=== PATIENT | male | born 1995 | race African-American/Black ===

== ENCOUNTER 2019-03-12 06:50 | Emergency (ER) | payer BC ==
[~2019-03-12] VITALS: Ht 177.8 cm; Wt 95.3 kg
[2019-03-12] MEDS ORDERED: IV NORMAL SALINE 1000ML BAG 1,000 ML IV ONE ×2 (07:15→08:15)
[2019-03-12] MEDS ORDERED: ONDANSETRON PF 4 MG/2 ML VIAL. IV ONE (07:15)
--- NOTE | 2019-03-12 07:16 | PHYS DOC ---
Past Medical History Past Medical History: Seizure, Other Additional Past Medical Histor: NEUROPATHY Past Surgical History: No Surgical History Alcohol Use: Occasionally Drug Use: Marijuana Adult General Chief Complaint Chief Complaint: SEIZURE HPI HPI Patient is a 23 year old F who presents for seizure. He has a history of seizures and takes keppra 500 BID. He works nights. He usually takes his medication at 5:30 PM when he gets up. He did not take it till 6:45. He also did not sleep that well yesterday. 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 He denies head injury, neck pain, cp, sob, fever. PMH: seizures PSH: denies SH: smokes cigs, MJ, drinks occas, no other drugs Review of Systems Review of Systems Constitutional: Denies fever or chills Eyes: Denies change in visual acuity, redness, or eye pain HENT: Denies nasal congestion or sore throat Respiratory: Denies cough or shortness of breath Cardiovascular: No additional information not addressed in HPI GI: Denies abdominal pain, nausea, vomiting, bloody stools or diarrhea : Denies dysuria or hematuria Musculoskeletal: Denies back pain or joint pain Integument: Denies rash or skin lesions Neurologic: Denies headache, focal weakness or sensory changes All other systems were reviewed and found to be within normal limits, except as documented in this note. Current Medications Current Medications Current Medications Medications (Trade) Dose Ordered Sig/Scott Start Time Stop Time Status Last Admin Dose Admin Ondansetron HCl (Zofran) 4 mg 1X ONCE 03/12/19 07:15 03/12/19 07:16 DC 03/12/19 07:21 4 MG Sodium Chloride 1,000 ml @ 1,000 mls/hr 1X ONCE 03/12/19 08:15 03/12/19 09:14 DC 03/12/19 08:06 1,000 MLS/HR Allergies Allergies Allergies Coded Allergies Type Severity Reaction Last Updated Verified No Known Drug Allergies 03/12/19 No Physical Exam Physical Exam Constitutional: Well developed, well nourished, no acute distress, non-toxic appearance. HENT: Normocephalic, atraumatic, bilateral external ears normal, oropharynx moist, no oral exudates, nose normal. Eyes: PERRLA, EOMI, conjunctiva normal, no discharge. Neck: Normal range of motion, no tenderness, supple, no stridor. Cardiovascular:Heart rate regular rhythm, no murmur Lungs & Thorax: Bilateral breath sounds clear to auscultation Abdomen: Bowel sounds normal, soft, no tenderness, no masses, no pulsatile masses. Skin: Warm, dry, no erythema, no rash. Back: No tenderness, no CVA tenderness. Extremities: No tenderness, no cyanosis, no clubbing, ROM intact, no edema. Neurologic: Alert and oriented X 3, normal motor function, normal sensory function, no focal deficits noted. Psychologic: Affect normal, judgement normal, mood normal. Current Patient Data Vital Signs Vital Signs Date Time Temp Pulse Resp B/P (MAP) Pulse Ox O2 Delivery O2 Flow Rate FiO2 03/12/19 09:25 89 16 98 03/12/19 06:50 98.2 159/68 (98) Room Air 98.2 Lab Values Laboratory Tests Test 03/12/19 07:05 03/12/19 07:45 03/12/19 09:03 White Blood Count 16.5 x10^3/uL (4.0-11.0) H Red Blood Count 5.44 x10^6/uL (4.30-5.70) Hemoglobin 17.5 g/dL (13.0-17.5) Hematocrit 51.4 % (39.0-53.0) Mean Corpuscular Volume 95 fL (79-100) Mean Corpuscular Hemoglobin 32 pg (25-35) Mean Corpuscular Hemoglobin Concent 34 g/dL (31-37) Red Cell Distribution Width 13.4 % (11.5-14.5) Platelet Count 336 x10^3/uL (140-400) Neutrophils (%) (Auto) 71 % (31-73) Lymphocytes (%) (Auto) 20 % (24-48) L Monocytes (%) (Auto) 8 % (0-9) Eosinophils (%) (Auto) 0 % (0-3) Basophils (%) (Auto) 0 % (0-3) Neutrophils # (Auto) 11.8 x10^3uL (1.8-7.7) H Lymphocytes # (Auto) 3.3 x10^3/uL (1.0-4.8) Monocytes # (Auto) 1.3 x10^3/uL (0.0-1.1) H Eosinophils # (Auto) 0.1 x10^3/uL (0.0-0.7) Basophils # (Auto) 0.1 x10^3/uL (0.0-0.2) Sodium Level 136 mmol/L (136-145) Potassium Level 4.2 mmol/L (3.5-5.1) Chloride Level 95 mmol/L (98-107) L Carbon Dioxide Level 18 mmol/L (21-32) L Anion Gap 23 (6-14) H 17 mmol/L (6-14) H Blood Urea Nitrogen 16 mg/dL (8-26) Creatinine 1.7 mg/dL (0.7-1.3) H Estimated GFR (Cockcroft-Gault) 50.2 BUN/Creatinine Ratio 9 (6-20) Glucose Level 169 mg/dL (70-99) H 88 mg/dL (70-99) Calcium Level 10.4 mg/dL (8.5-10.1) H Total Bilirubin 2.0 mg/dL (0.2-1.0) H Aspartate Amino Transferase (AST) 25 U/L (15-37) Alanine Aminotransferase (ALT) 47 U/L (16-63) Alkaline Phosphatase 88 U/L (46-116) Total Protein 9.1 g/dL (6.4-8.2) H Albumin 5.0 g/dL (3.4-5.0) Albumin/Globulin Ratio 1.2 (1.0-1.7) Lipase 47 U/L (73-393) L Urine Collection Type Unknown Urine Color Siobhan Urine Clarity Clear Urine pH 5.5 Urine Specific Pullman >=1.030 Urine Protein 100 mg/dL (NEG-TRACE) Urine Glucose (UA) Negative mg/dL (NEG) Urine Ketones (Stick) 40 mg/dL (NEG) Urine Blood Negative (NEG) Urine Nitrite Negative (NEG) Urine Bilirubin Moderate (NEG) Urine Urobilinogen Dipstick 1.0 mg/dL (0.2 mg/dL) Urine Leukocyte Esterase Trace (NEG) Urine RBC Occ /HPF (0-2) Urine WBC 5-10 /HPF (0-4) Urine Squamous Epithelial Cells Few /LPF Urine Bacteria Mod /HPF (0-FEW) Urine Hyaline Casts Many /HPF Urine Mucus Marked /LPF Urine Sperm Present /HPF POC Hemoglobin 15.0 g/dL (14-18) POC Hematocrit 44 % (37-52) POC Sodium 137 mmol/L (135-145) POC Potassium 4.4 mmol/L (3.5-5.0) POC Chloride 103 mmol/L (98-110) POC Total CO2 22 mmol/L (23-32) L POC Blood Urea Nitrogen 12 mg/dL (8-26) POC Creatinine 1.1 mg/dL (0.5-1.4) POC Ionized Calcium (Charlene) 1.15 mmol/L (1.13-1.32) Laboratory Tests 03/12/19 07:05 Laboratory Tests 03/12/19 07:05 03/12/19 09:03 EKG EKG [] Radiology/Procedures Radiology/Procedures [] Course & Med Decision Making Course & Med Decision Making Pertinent Labs and Imaging studies reviewed. (See chart for details) 23 y/o M with h/o seizures, compliant with keppra, presents for seizure. 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 Check labs, he is slightly tachycardic. likely 2/2 dehydr from working in a hot oven all night. Pt given 2L NS. Labs repeated and show improvement in electrolytes. Lalo beauchamp - discussed need for followup with pt. He is feeling better and would like to go home. DC home. Follow up with PMD. Discussed return precautions. Dragon Disclaimer Dragon Disclaimer This electronic medical record was generated, in whole or in part, using a voice recognition dictation system. Departure Departure Impression: Primary Impression: Seizure disorder Disposition: 01 HOME, SELF-CARE Condition: IMPROVED Patient Instructions: Seizure, Adult LANI TOTH MD March 12, 2019 07:16
[2019-03-12 07:21] LABS: BASO # 0.1 x10^3/uL (0.0-0.2); BASO % 0 % (0-3); EOS # 0.1 x10^3/uL (0.0-0.7); EOS % 0 % (0-3); HEMATOCRIT 51.4 % (39.0-53.0); HEMOGLOBIN 17.5 g/dL (13.0-17.5); LYMPH # 3.3 x10^3/uL (1.0-4.8); LYMPH % 20 % (24-48); MEAN CORPUSCULAR HEMOGLOBIN 32 pg (25-35); MEAN CORPUSCULAR HGB CONC 34 g/dL (31-37); MEAN CORPUSCULAR VOLUME 95 fL (79-100); MONO # 1.3 x10^3/uL (0.0-1.1); MONO % 8 % (0-9); NEUT # 11.8 x10^3uL (1.8-7.7); NEUT % 71 % (31-73); PLATELET COUNT 336 x10^3/uL (140-400); RED BLOOD COUNT 5.44 x10^6/uL (4.30-5.70); RED CELL DISTRIBUTION WIDTH 13.4 % (11.5-14.5); WHITE BLOOD COUNT 16.5 x10^3/uL (4.0-11.0)
[2019-03-12 07:29] LABS: CALCIUM 10.4 mg/dL (8.5-10.1); CREATININE 1.7 mg/dL (0.7-1.3); GFR 50.2; POTASSIUM 4.2 mmol/L (3.5-5.1)
[2019-03-12 07:34] LABS: ALBUMIN/GLOBULIN RATIO 1.2 (1.0-1.7); TOTAL PROTEIN 9.1 g/dL (6.4-8.2)
[2019-03-12 08:08] LABS: BILIRUBIN,URINE MODERATE (NEG); CLARITY,URINE CLEAR; COLOR,URINE AMBER; NITRITE,URINE NEGATIVE (NEG); PH,URINE 5.5; PROTEIN,URINE 100 mg/dL (NEG-TRACE)
[2019-03-12 08:12] LABS: HYALINE CASTS, URINE MANY /HPF; SQUAMOUS EPITHELIAL CELL,UR FEW /LPF
[2019-03-12 08:13] LABS: BACTERIA,URINE MOD /HPF (0-FEW)
[2019-03-12 08:14] LABS: RBC,URINE OCC /HPF (0-2)
[2019-03-12 08:15] LABS: SPERM,URINE PRESENT /HPF
[2019-03-12 09:25] VITALS: BP 129/78
[2019-03-12 11:01] LABS: CREATININE ISTAT 1.1 mg/dL (0.5-1.4); ION CA ISTAT 1.15 mmol/L (1.13-1.32); POTASSIUM ISTAT 4.4 mmol/L (3.5-5.0)
== END 2019-03-12 09:41 | disposition home or self-care (01) ==
LOC: ER 06:50
DX: G40.909 Epilepsy, unspecified, not intractable, without status epilepticus (principal); R00.0 Tachycardia, unspecified; F17.210 Nicotine dependence, cigarettes, uncomplicated
CPT/HCPCS: 36415; 80047; 80053; 81001; 83690; 85025; 96374; 99284; J2405; J7030; 96361